=== PATIENT | male | born 1965 | race Caucasian/White ===

== ENCOUNTER 2017-05-11 02:07 | Observation (INO) | payer BC, MEDICARE ==
[2017-05-11 02:08] VITALS: BMI 34.0
[2017-05-11 03:17] LABS: MONO % 6.3 % (0.0-10.0)
[2017-05-11 03:21] LABS: ALB/GLOB RATIO 1.2 (1.0-2.1); ALBUMIN 4.1 g/dL (3.5-5.0); ALT/SGPT 54 U/L (21-72); AST/SGOT 28 U/L (17-59); BLOOD UREA NITROGEN 15 mg/dL (9-20); CALCIUM 8.7 mg/dl (8.6-10.4); GFR AFRICAN-AMERICAN > 60; GFR NON-AFRICAN AMERICAN > 60
[2017-05-11 03:24] LABS: BASO # 0.1 K/uL (0.0-0.2); BASO % 0.8 % (0.0-2.0); EOS # 0.4 K/uL (0.0-0.7); EOS % 2.4 % (0.0-4.0); LYMPH # 2.7 K/uL (1.0-4.3); LYMPH % 17.1 % (20.0-40.0); MEAN CELL VOLUME 91.6 fL (80.0-94.0); MEAN CORPUSCULAR HEMOGLOBIN 31.5 pg (27.0-31.0); MEAN CORPUSCULAR HGB CONC 34.4 g/dL (33.0-37.0); MEAN PLATELET VOLUME 10.5 fL (7.2-11.7); NEUT # 11.5 K/uL (1.8-7.0); NEUT % 73.4 % (50.0-75.0); RBC 4.44 Mil/uL (4.40-5.90); RED CELL DISTRIBUTION WIDTH 13.2 % (11.5-14.5); WHITE BLOOD COUNT 15.6 K/uL (4.8-10.8)
[2017-05-11] MEDS ORDERED: Aspirin 325 mg EC Tablets PO STA (03:27)
[2017-05-11 03:33] LABS: B-TYPE NATRIURETIC PEPTIDE 103 pg/mL (0-900)
[2017-05-11] MEDS ORDERED: Aspirin 325 mg EC Tablets PO ONE (03:36)
--- NOTE | 2017-05-11 03:44 | C.PDOC ---
History Of Present Illness 52 year old male with PMHx of dilated cardiomyopathy presents to the ED for evaluation of chest pressure, weakness in his legs and occipotal pressure. Patient has a defibrillator in place followed by Dr. Rodriguez, patient's last evaluation with Dr. Rodriguez was on 2013 showed a right cardiac cath with mild pulmonary hypertension. Per patient he also had a normal cath on 2010. Time Seen by Provider: 05/11/17 02:57 Chief Complaint (Nursing): Chest Pain History Per: Patient History/Exam Limitations: no limitations Onset/Duration Of Symptoms: Days Current Symptoms Are (Timing): Gone Quality: Pressure Modifying Factors: None Exacerbating Factors: None Alleviating Factors: None Recent travel outside of the [place]: No Additional History Per: Patient Past Medical History Reviewed: Historical Data, Nursing Documentation, Vital Signs Vital Signs: Last Vital Signs Temp 97.7 F 05/11/17 06:00 Pulse 73 05/11/17 06:00 Resp 20 05/11/17 06:00 BP 107/71 05/11/17 06:00 Pulse Ox 95 05/11/17 06:00 - Medical History PMH: Anxiety, Arthritis (KNEE PAIN), Asthma, CHF, COPD, Depression, HTN, Peripheral Edema (SOMETIMES), Sleep Apnea Denies: Chronic Kidney Disease Surgical History: No Surg Hx - [facility] CORONAR ARTERIOGR-2 CATH (05/26/13) INFLUENZA VACCINATION (05/08/13) LT HEART ANGIOCARDIOGRAM (05/26/13) RT/LEFT HEART CARD CATH (05/26/13) Family History: States: Unknown Family Hx - Social History Hx Tobacco Use: Yes Hx Alcohol Use: Yes Hx Substance Use: No - Immunization History Hx Tetanus Toxoid Vaccination: No Hx Influenza Vaccination: No Hx Pneumococcal Vaccination: No Review Of Systems Constitutional: Negative for: Fever, Chills Cardiovascular: Positive for: Chest Pain. Negative for: Palpitations Respiratory: Negative for: Cough, Shortness of Breath Gastrointestinal: Negative for: Nausea, Vomiting, Abdominal Pain Skin: Negative for: Rash Neurological: Positive for: Weakness, Headache. 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, anxious) Skin: Normal Color, Warm, Dry Head: Atraumatic, Normacephalic Nose: No Discharge, No Deformity Oral Mucosa: Moist Neck: Normal ROM, Supple Chest: Symmetrical, Other (defibrillator midaxillary line left chest) Cardiovascular: Rhythm Regular, No Murmur Respiratory: Normal Breath Sounds, No Rales, No Rhonchi, No Wheezing Gastrointestinal/Abdominal: Soft, No Tenderness, No Guarding, No Rebound Extremity: Normal ROM, No Pedal Edema, No Calf Tenderness, No Deformity, No Swelling Neurological/Psych: Oriented x3, Normal Speech Gait: Steady ED Course And Treatment - Laboratory Results Result Diagrams: 05/11/17 03:10 05/11/17 03:10 Lab Interpretation: Abnormal (+ elev WBC's not L-shifted. trop/bnp wnl) ECG: Interpreted By Me ECG Rhythm: Sinus Rhythm, Nonspecific Changes (lateral leads, unchanged from prior (as described)) ECG Interpretation: Normal Rate From EC O2 Sat by Pulse Oximetry: 96 (On RA) Pulse Ox Interpretation: Normal - Radiology CXR: Interpreted by Me CXR Interpretation: Yes: No Acute Disease - CT Scan/US CT Head Other Rad Studies (CT/US): Read By Radiologist, Radiology Report Reviewed CT/US Interpretation: FINDINGS: Brain: Mild atrophy. No intracranial hemorrhage. No mass. No definite edema. Ventricles: No hydrocephalus. Bones/ joints: No acute fracture. Soft tissues: Unremarkable. Vasculature: Minimal atherosclerotic disease of intracranial arteries. Sinuses: No acute sinusitis. Mastoid air cells: No mastoid effusion. Orbits: Unremarkable as visualized. IMPRESSION: 1. No definite acute intracranial abnormality. 2. Incidental/non- acute findings are described above. Progress Note: headache pressure treated with toradol/tramadol, ASA Reevaluation Time: 04:30 Reassessment Condition: Improved - Physician Consult Information Outcome Of Conversation: 0430: calls to d/w Dr. Tomas Milner- PMD. discussed @ 0600 Medical Decision Making Medical Decision Making: Plan: * CT head * EKG * CXR * Blood work * Ecotrin 325 mg PO * Toradol 30 mg IVP * Ultram 50 mg PO vague head and chest discomfort, + anxiety, normal w/u h/o dilated cardiomyopathy with defibrillator, no recent Cardiac Echo available. Admit for Tele obs. Consult w Dr. Rodriguez head CT neg neck discomfort seems R>L cervical trapezius area and NOT intracranial. Tramadol/toradol trialed but no sig relief per pt (though sleeping on re-eval) Disposition Doctor Will See Patient In The: Hospital Counseled Patient/Family Regarding: Studies Performed, Diagnosis - Disposition Disposition: HOSPITALIZED Disposition Time: 04:32 Condition: GOOD Forms: [facility] (Gambian) - Clinical Impression Clinical Impression: Chest discomfort, Pressure in head, Sprain of cervical neck - Scribe Statement The provider has reviewed the documentation as recorded by the Scribe Keegan Schilling All medical record entries made by the Scribe were at my direction and personally dictated by me. I have reviewed the chart and agree that the record accurately reflects my personal performance of the history, physical exam, medical decision making, and the department course for this patient. I have also personally directed, reviewed, and agree with the discharge instructions and disposition.
--- NOTE | 2017-05-11 04:32 | CT ---
EXAM: CT Head Without Intravenous Contrast CLINICAL HISTORY: 52 years old, male; Pain; Headache; Headache not specified; Additional info: Head pressure/occipital TECHNIQUE: Axial computed tomography images of the head/brain without intravenous contrast. All CT scans at this facility use one or more dose reduction techniques, viz.: automated exposure control; ma/kV adjustment per patient size (including targeted exams where dose is matched to indication; i.e. head); or iterative reconstruction technique. Coronal and sagittal reformatted images were created and reviewed. COMPARISON: No relevant prior studies available. FINDINGS: Brain: Mild atrophy. No intracranial hemorrhage. No mass. No definite edema. Ventricles: No hydrocephalus. Bones/joints: No acute fracture. Soft tissues: Unremarkable. Vasculature: Minimal atherosclerotic disease of intracranial arteries. Sinuses: No acute sinusitis. Mastoid air cells: No mastoid effusion. Orbits: Unremarkable as visualized. IMPRESSION: 1. No definite acute intracranial abnormality. 2. Incidental/non-acute findings are described above.
[2017-05-11] MEDS ORDERED: Enoxaparin 40 mg Syringe SC STA (04:33)
[2017-05-11] MEDS ORDERED: Enoxaparin 100 mg Syringe ONE (04:43)
[2017-05-11 06:02] VITALS: RESP 20
--- NOTE | 2017-05-11 08:42 | RAD ---
PROCEDURE: CHEST RADIOGRAPH, 1 VIEW HISTORY: SOB COMPARISON: Comparison is made with 05/07/2013 FINDINGS: LUNGS: No evidence of new infiltrate or consolidation in the lungs. PLEURA: No pneumothorax or pleural fluid seen. CARDIOVASCULAR: Normal. OSSEOUS STRUCTURES: No significant abnormalities. VISUALIZED UPPER ABDOMEN: Normal. OTHER FINDINGS: None. IMPRESSION: No active disease.
[2017-05-11] MEDS ORDERED: Potassium Chloride 20 mEq ER Tab PO ONE (10:00)
[2017-05-11] MEDS: Enoxaparin 30 mg Syringe SC SCH ×2 (11:00→21:28)
--- NOTE | 2017-05-11 13:56 | CP.PCM.CON ---
History of Present Illness - History of Present Illness History of Present Illness: I was asked to see patient by Dr Milner. patient is a 52 year old male with PMH nonobstructive CAD, hypercholesterolemia , dialted cardiomyopathy s/p AICD who presents with pressure in the occipital region of the head. Symptoms were intermittent, however the patient became concerned because he developed blurry vision. The patient had a radiation of his pain to the chest. He denies dyspnea or palpitaitons. Review of Systems - Constitutional Constitutional: absent: As Per HPI, Anorexia, Chills, Daytime Sleepiness, Excessive Sweating, Fatigue, Fever, Frequent Falls, Headache, Increased Appetite , Lethargy, Malaise, Night Sweats, Snoring, Sleep Apnea, Weight Gain, Weight Loss, Weakness, Other - EENT Eyes: absent: As Per HPI, Blind Spots, Blurred Vision, Change in Vision, Decreased Night Vision, Diplopia, Discharge, Dry Eye, Exophthalmos, Floaters, Irritation, Itchy Eyes, Loss of Peripheral Vision, Pain, Photophobia, Requires Corrective Lenses, Sees Flashes, Spots in Vision, Tunnel Vision, Other Visual Disturbances, Loss of Vision, Other Ears: absent: As Per HPI, Decreased Hearing, Ear Discharge, Ear Pain, Tinnitus, Abnormal Hearing, Disequilibrium, Dizziness, Other Nose/Mouth/Throat: absent: As Per HPI, Epistaxis, Nasal Congestion, Nasal Discharge, Nasal Obstruction, Nasal Trauma, Nose Pain, Post Nasal Drip, Sinus Pain, Sinus Pressure, Bleeding Gums, Change in Voice, Dental Pain, Dry Mouth, Dysphagia, Halitosis, Hoarsness, Lip Swelling, Mouth Lesions, Mouth Pain, Odynophagia, Sore Throat, Throat Swelling, Tongue Swelling, Facial Pain, Neck Pain, Neck Mass, Other - Cardiovascular Cardiovascular: absent: As Per HPI, Acrocyanosis, Chest Pain, Chest Pain at Rest , Chest Pain with Activity, Claudication, Diaphoresis, Dyspnea, Dyspnea on Exertion, Edema, Irregular Heart Rhythm, Pain Radiating to Arm/Neck/Jaw, Leg Edema, Leg Ulcers, Lightheadedness, Orthopnea, Palpitations, Paroxysmal Nocturnal Dyspnea, Pedal Edema, Radiating Pain, Rapid Heart Rate, Slow Heart Rate, Syncope, Other - Respiratory Respiratory: absent: As Per HPI, Cough, Dyspnea, Hemoptysis, Dyspnea on Exertion , Wheezing, Snoring, Stridor, Pain on Inspiration, Chest Congestion, Excessive Mucous Production, Change in Mucous Color, Pain with Coughing, Other - Gastrointestinal Gastrointestinal: absent: As Per HPI, Abdominal Pain, Belching, Bloating, Change in Bowel Habits, Change in Stool Character, Coffee Ground Emesis, Constipation, Cramping, Diarrhea, Dyspepsia, Dysphagia, Early Satiety, Excessive Flatus, Fecal Incontinence, Heartburn, Hematemesis, Hematochezia, Loose Stools, Melena, Nausea, Odynophagia, Temesmus, Vomiting, Other - Genitourinary Genitourinary: absent: As Per HPI, Change in Urinary Stream, Difficulty Urinating, Dysuria, Flank Pain, Hematuria, Pyuria, Nocturia, Urinary Incontinence, Urinary Frequency, Urinary Hesitance, Urinary Urgency, Voiding Freq/Small Amts, Freq UTI, Hx Renal/Bladder Calculi, Hx /Renal Surgery, Bladder Distension, Other - Musculoskeletal Musculoskeletal: absent: As Per HPI, Abnormal Gait, Arthralgias, Atrophy, Back Pain, Deformity, Joint Swelling, Limited Range of Motion, Loss of Height, Muscle Cramps, Muscle Weakness, Myalgias, Neck Pain, Numbness, Radiating Pain into Limb, Stiffness, Tingling, Other - Integumentary Integumentary: absent: As Per HPI, Acne, Alopecia, Bleeding Lesions, Change in Hair, Change in Nails, Change in Pigmentation, Changing Lesions, Dry Skin, Erythema, Furuncle, Hirsutism, Lesions, New Lesions, Non-Healing Lesions, Photosensitivity, Pruritus, Rash, Skin Pain, Skin Ulcer, Sores, Striae, Swelling , Unusual Bruising, Wounds, Jaundice, Other - Neurological Neurological: absent: As Per HPI, Abnormal Gait, Abnormal Hearing, Abnormal Movements, Abnormal Speech, Behavioral Changes, Burning Sensations, Confusion, Convulsions, Disequilibrium, Dizziness, Numbness, Focal Weakness, Frequent Falls , Headaches, Lack of Coordination, Loss of Vision, Memory Loss, Paresthesias, Radicular Pain, Restless Legs, Sensory Deficit, Syncope, Tingling, Tremor, Vertigo, Weakness, Other Visual Disturbances, Other - Psychiatric Psychiatric: absent: As Per HPI, Abnormal Sleep Pattern, Anhedonia, Anxiety, Auditory Hallucinations, Behavioral Changes, Change in Appetite, Change in Libido, Confusion, Depression, Difficulty Concentrating, Hallucinations, Homicidal Ideation, Hopelessness, Irritability, Memory Loss, Mood Swings, Panic Attacks, Paranoia, Suicidal Ideation, Visual Hallucinations, Tactile Hallucinations, Other - Endocrine Endocrine: absent: As Per HPI, Change in Body Appearance, Change in Libido, Cold Intolorance, Deepening of Voice, Excessive Sweating, Fatigue, Flushing, Heat Intolorance, Increase in Ring/Shoe/Hat Size, Palpitations, Polydipsia, Polyphagia, Polyuria, Other - Hematologic/Lymphatic Hematologic: absent: As Per HPI, Easy Bleeding, Easy Bruising, Lymphadenopathy, Other Past Patient History - Infectious Disease Hx of Infectious Diseases: None - Past Medical History & Family History Past Medical History?: Yes - Past Social History Smoking Status: Former Smoker - CARDIAC Hx Congestive Heart Failure: Yes Hx Hypertension: Yes Hx Peripheral Edema: Yes (SOMETIMES) - PULMONARY Hx Asthma: Yes Hx Chronic Obstructive Pulmonary Disease (COPD): Yes Hx Sleep Apnea: Yes - NEUROLOGICAL Hx Neurological Disorder: Yes (SOMETIMES NUMBNESS HANDS AND FEET) - HEENT Hx HEENT Problems: Yes (GLASSES) - RENAL Hx Chronic Kidney Disease: No - ENDOCRINE/METABOLIC Hx Endocrine Disorders: No - HEMATOLOGICAL/ONCOLOGICAL Hx Blood Disorders: No - INTEGUMENTARY Hx Dermatological Problems: Yes (HIVES/ETIOLOGY UNKNOWN) - MUSCULOSKELETAL/RHEUMATOLOGICAL Hx Arthritis: Yes (KNEE PAIN) - GASTROINTESTINAL Hx Gastrointestinal Disorders: Yes Hx Gastroesophageal Reflux: Yes - GENITOURINARY/GYNECOLOGICAL Hx Genitourinary Disorders: No - PSYCHIATRIC Hx Anxiety: Yes Hx Depression: Yes Hx Substance Use: No - SURGICAL HISTORY Hx Surgeries: Yes Hx Cardiac Catheterization: Yes Other/Comment: DEFIBRILLATOR. - ANESTHESIA Hx Anesthesia: Yes Hx Anesthesia Reactions: No Hx Malignant Hyperthermia: No Meds Allergies/Adverse Reactions: Allergies Allergy/AdvReac Type Severity Reaction Status Date / Time FRUIT AdvReac SWELLING Uncoded 05/11/17 02:24 - Medications Medications: Current Medications Carvedilol (Coreg) 12.5 mg PO BID [facility] Last Admin: 05/11/17 11:00 Dose: 12.5 mg Clopidogrel Bisulfate (Plavix) 75 mg PO DAILY [facility] Last Admin: 05/11/17 11:00 Dose: 75 mg Enoxaparin Sodium (Lovenox) 30 mg SC Q12 [facility] Last Admin: 05/11/17 11:00 Dose: 30 mg Losartan Potassium (Cozaar) 100 mg PO DAILY [facility] Last Admin: 05/11/17 11:00 Dose: 100 mg Pneumococcal Polyvalent Vaccine (Pneumovax 23 Vaccine) 0.5 ml IM .ONCE ONE Stop: 05/14/17 14:01 Rosuvastatin Calcium (Crestor) 10 mg PO HS [place] Physical Exam - Constitutional Appears: Non-toxic - Head Exam Head Exam: NORMAL INSPECTION - Eye Exam Eye Exam: Normal appearance - ENT Exam ENT Exam: Mucous Membranes Moist - Neck Exam Neck exam: Positive for: Full Rom - Respiratory Exam Respiratory Exam: NORMAL BREATHING PATTERN - Cardiovascular Exam Cardiovascular Exam: REGULAR RHYTHM - GI/Abdominal Exam GI & Abdominal Exam: Normal Bowel Sounds - Rectal Exam Rectal Exam: Deferred - Extremities Exam Extremities exam: Positive for: normal inspection, pedal edema - Back Exam Back exam: NORMAL INSPECTION - Neurological Exam Neurological exam: Alert, Oriented x3 - Psychiatric Exam Psychiatric exam: Normal Affect - Skin Skin Exam: Normal Color Results - Vital Signs Recent Vital Signs: Last Vital Signs Temp 97.5 F L 05/11/17 07:59 Pulse 75 05/11/17 07:59 Resp 20 05/11/17 07:59 BP 120/72 05/11/17 11:00 Pulse Ox 95 05/11/17 07:59 - Labs Result Diagrams: 05/11/17 03:10 05/11/17 03:10 Labs: Laboratory Results - last 24 hr 05/11/17 05/11/17 03:10 03:10 WBC 15.6 H RBC 4.44 Hgb 14.0 Hct 40.7 MCV 91.6 D MCH 31.5 H MCHC 34.4 RDW 13.2 Plt Count 249 MPV 10.5 Neut % (Auto) 73.4 Lymph % (Auto) 17.1 L [place] % (Auto) 6.3 Eos % (Auto) 2.4 Baso % (Auto) 0.8 Neut # 11.5 H Lymph # 2.7 [place] # 1.0 H Eos # 0.4 Baso # 0.1 Sodium 133 Potassium 3.3 L Chloride 94 L Carbon Dioxide 28 Anion Gap 14 BUN 15 Creatinine 0.9 Est GFR ( Amer) > 60 Est GFR (Non-Af Amer) > 60 Random Glucose 112 H Calcium 8.7 Total Bilirubin 0.8 AST 28 ALT 54 Alkaline Phosphatase 88 Troponin I 0.0120 NT-Pro-B Natriuret Pep 103 Total Protein 7.5 Albumin 4.1 Globulin 3.4 Albumin/Globulin Ratio 1.2 - EKG Data EKG Interpreted by: Myself EKG shows normal: Sinus rhythm Assessment & Plan (1) Pressure in head Assessment and Plan: CT scan pending. no evidence of afib Status: Acute (2) HTN (hypertension) Assessment and Plan: blood pressure is controlled. Status: Acute (3) Dilated cardiomyopathy Assessment and Plan: s/p subcutaneous AICD. Status: Acute (4) CAD (coronary artery disease) Assessment and Plan: nonobstructive. chest pain does not appear cardiac. recommend medical therapy. EKG noted, but no acute ischemia. consider outpatient stress test Status: Acute
--- NOTE | 2017-05-11 15:06 | CP.PCM.HP ---
History of Present Illness - History of Present Illness History of Present Illness: CC: nape pain 52 y/o male with CAD. Patient yesterday jackson chest presuure and goes to the nape. This was later followed by blurred vision/ eye pain. patiemnt nervous and went to ER. Present on Admission - Present on Admission Any Indicators Present on Admission: Yes History of DVT/PE: No History of Uncontrolled Diabetes: No Urinary Catheter: No Decubitus Ulcer Present: No Review of Systems - Review of Systems Systems not reviewed;Unavailable: Acuity of Condition - Constitutional Constitutional: absent: Excessive Sweating, Increased Appetite, Night Sweats, Sleep Apnea - EENT Eyes: absent: Diplopia, Discharge, Dry Eye, Floaters, Requires Corrective Lenses , Sees Flashes Ears: absent: Decreased Hearing, Ear Discharge, Ear Pain, Dizziness Nose/Mouth/Throat: absent: Epistaxis, Nasal Obstruction, Sinus Pressure, Bleeding Gums, Change in Voice, Hoarsness, Mouth Lesions, Mouth Pain, Odynophagia - Cardiovascular Cardiovascular: Chest Pain. absent: Chest Pain at Rest, Diaphoresis, Dyspnea, Edema, Irregular Heart Rhythm, Leg Edema, Palpitations, Paroxysmal Nocturnal Dyspnea, Slow Heart Rate - Respiratory Respiratory: absent: Cough, Hemoptysis, Dyspnea on Exertion, Wheezing, Chest Congestion, Excessive Mucous Production, Pain with Coughing - Gastrointestinal Gastrointestinal: absent: Bloating, Dysphagia, Heartburn, Hematochezia, Loose Stools, Melena - Genitourinary Genitourinary: absent: Difficulty Urinating, Nocturia, Urinary Urgency, Freq UTI - Musculoskeletal Musculoskeletal: absent: Abnormal Gait, Atrophy, Loss of Height, Muscle Weakness , Myalgias, Neck Pain, Numbness, Radiating Pain into Limb - Integumentary Integumentary: absent: New Lesions, Skin Pain, Sores, Unusual Bruising - Neurological Neurological: absent: Abnormal Gait, Dizziness, Loss of Vision, Restless Legs, Syncope - Psychiatric Psychiatric: Anxiety. absent: Confusion, Hopelessness, Irritability, Mood Swings Past Patient History - Infectious Disease Hx of Infectious Diseases: None - Past Medical History & Family History Past Medical History?: Yes - Past Social History Smoking Status: Former Smoker - CARDIAC Hx Congestive Heart Failure: Yes Hx Hypertension: Yes Hx Peripheral Edema: Yes (SOMETIMES) - PULMONARY Hx Asthma: Yes Hx Chronic Obstructive Pulmonary Disease (COPD): Yes Hx Sleep Apnea: Yes - NEUROLOGICAL Hx Neurological Disorder: Yes (SOMETIMES NUMBNESS HANDS AND FEET) - HEENT Hx HEENT Problems: Yes (GLASSES) - RENAL Hx Chronic Kidney Disease: No - ENDOCRINE/METABOLIC Hx Endocrine Disorders: No - HEMATOLOGICAL/ONCOLOGICAL Hx Blood Disorders: No - INTEGUMENTARY Hx Dermatological Problems: Yes (HIVES/ETIOLOGY UNKNOWN) - MUSCULOSKELETAL/RHEUMATOLOGICAL Hx Arthritis: Yes (KNEE PAIN) - GASTROINTESTINAL Hx Gastrointestinal Disorders: Yes Hx Gastroesophageal Reflux: Yes - GENITOURINARY/GYNECOLOGICAL Hx Genitourinary Disorders: No - PSYCHIATRIC Hx Anxiety: Yes Hx Depression: Yes Hx Substance Use: No - SURGICAL HISTORY Hx Surgeries: Yes Hx Cardiac Catheterization: Yes Other/Comment: DEFIBRILLATOR. - ANESTHESIA Hx Anesthesia: Yes Hx Anesthesia Reactions: No Hx Malignant Hyperthermia: No Meds Allergies/Adverse Reactions: Allergies Allergy/AdvReac Type Severity Reaction Status Date / Time FRUIT AdvReac SWELLING Uncoded 05/11/17 02:24 Physical Exam - Constitutional Appears: Well - Eye Exam Eye Exam: Normal appearance - ENT Exam ENT Exam: Mucous Membranes Moist - Neck Exam Neck exam: Positive for: Full Rom. Negative for: Lymphadenopathy, Normal Inspection - Respiratory Exam Respiratory Exam: Clear to Auscultation Bilateral. absent: Rales, Rhonchi, Wheezes - Cardiovascular Exam Cardiovascular Exam: +S1, +S2, Systolic Murmur. absent: Gallop, JVD - GI/Abdominal Exam GI & Abdominal Exam: Soft. absent: Rebound, Tenderness - Extremities Exam Extremities exam: Positive for: full ROM, normal capillary refill. Negative for : calf tenderness, joint swelling, pedal edema Results - Vital Signs Recent Vital Signs: Last Vital Signs Temp 97.5 F L 05/11/17 07:59 Pulse 75 05/11/17 07:59 Resp 20 05/11/17 07:59 BP 120/72 05/11/17 11:00 Pulse Ox 95 05/11/17 07:59 - Labs Result Diagrams: 05/11/17 03:10 05/11/17 03:10 Labs: Laboratory Results - last 24 hr 05/11/17 05/11/17 03:10 03:10 WBC 15.6 H RBC 4.44 Hgb 14.0 Hct 40.7 MCV 91.6 D MCH 31.5 H MCHC 34.4 RDW 13.2 Plt Count 249 MPV 10.5 Neut % (Auto) 73.4 Lymph % (Auto) 17.1 L [place] % (Auto) 6.3 Eos % (Auto) 2.4 Baso % (Auto) 0.8 Neut # 11.5 H Lymph # 2.7 [place] # 1.0 H Eos # 0.4 Baso # 0.1 Sodium 133 Potassium 3.3 L Chloride 94 L Carbon Dioxide 28 Anion Gap 14 BUN 15 Creatinine 0.9 Est GFR ( Amer) > 60 Est GFR (Non-Af Amer) > 60 Random Glucose 112 H Calcium 8.7 Total Bilirubin 0.8 AST 28 ALT 54 Alkaline Phosphatase 88 Troponin I 0.0120 NT-Pro-B Natriuret Pep 103 Total Protein 7.5 Albumin 4.1 Globulin 3.4 Albumin/Globulin Ratio 1.2 - EKG Data EKG Interpreted by: Myself EKG shows normal: Sinus rhythm, ST-T waves - EKG Data When Compared to Previous EKG: No Significant Change (non sp ST depression) Assessment & Plan - Assessment and Plan (Free Text) Assessment: Chest pain/ blurred vison CAD s/p IVCD; Asthma Cont meds/ For Neuro eval
[2017-05-12 07:46] LABS: BASO # 0.1 K/uL (0.0-0.2); BASO % 0.7 % (0.0-2.0); EOS # 0.3 K/uL (0.0-0.7); EOS % 3.8 % (0.0-4.0); HEMOGLOBIN 13.9 g/dL (12.0-18.0); LYMPH # 2.6 K/uL (1.0-4.3); LYMPH % 28.6 % (20.0-40.0); MEAN CELL VOLUME 93.2 fL (80.0-94.0); MEAN CORPUSCULAR HEMOGLOBIN 31.7 pg (27.0-31.0); MEAN PLATELET VOLUME 10.2 fL (7.2-11.7); MONO # 0.6 K/uL (0.0-0.8); MONO % 7.1 % (0.0-10.0); NEUT # 5.5 K/uL (1.8-7.0); NEUT % 59.8 % (50.0-75.0); RBC 4.37 Mil/uL (4.40-5.90); RED CELL DISTRIBUTION WIDTH 13.1 % (11.5-14.5); WHITE BLOOD COUNT 9.1 K/uL (4.8-10.8)
[2017-05-12 08:08] VITALS: PULSE 98; TEMP 97.9; O2SAT 96
[2017-05-12 08:11] LABS: BLOOD UREA NITROGEN 11 mg/dL (9-20); CALCIUM 8.9 mg/dl (8.6-10.4); GFR AFRICAN-AMERICAN > 60; GFR NON-AFRICAN AMERICAN > 60
--- NOTE | 2017-05-12 08:43 | CP.PCM.PN ---
Subjective - Date & Time of Evaluation Date of Evaluation: 05/12/17 Time of Evaluation: 08:15 - Subjective Subjective: Pt feels tightness on nape and on / off blurred vision. No more chest tightness, no SOB, no cough, no running nose, no n/v Objective - Vital Signs/Intake and Output Vital Signs (last 24 hours): Temp Pulse Resp BP Pulse Ox 97.9 F 98 H 20 143/89 96 05/12/17 08:07 05/12/17 08:07 05/12/17 08:07 05/12/17 08:07 05/12/17 08:07 - Medications Medications: Current Medications Carvedilol (Coreg) 12.5 mg PO BID [facility] Last Admin: 05/11/17 18:03 Dose: 12.5 mg Clopidogrel Bisulfate (Plavix) 75 mg PO DAILY [facility] Last Admin: 05/11/17 11:00 Dose: 75 mg Enoxaparin Sodium (Lovenox) 30 mg SC Q12 [facility] Last Admin: 05/11/17 21:28 Dose: 30 mg Lorazepam (Ativan) 0.5 mg PO HS PRN PRN Reason: Muscle spasm Last Admin: 05/11/17 21:27 Dose: 0.5 mg Losartan Potassium (Cozaar) 100 mg PO DAILY [facility] Last Admin: 05/11/17 11:00 Dose: 100 mg Pneumococcal Polyvalent Vaccine (Pneumovax 23 Vaccine) 0.5 ml IM .ONCE ONE Stop: 05/14/17 14:01 Rosuvastatin Calcium (Crestor) 10 mg PO [facility] Last Admin: 05/11/17 21:27 Dose: 10 mg - Labs Labs: 05/12/17 07:37 05/12/17 07:37 - Constitutional Appears: No Acute Distress - Eye Exam Eye Exam: Normal appearance - ENT Exam ENT Exam: Mucous Membranes Moist - Respiratory Exam Respiratory Exam: Clear to Ausculation Bilateral. absent: Rales, Rhonchi, Wheezes - Cardiovascular Exam Cardiovascular Exam: REGULAR RHYTHM, +S1, +S2, Murmur. absent: Gallop, JVD - GI/Abdominal Exam GI & Abdominal Exam: Soft, Normal Bowel Sounds. absent: Tenderness - Extremities Exam Extremities Exam: Full ROM, Normal Capillary Refill. absent: Calf Tenderness, Joint Swelling, Pedal Edema Assessment and Plan - Assessment and Plan (Free Text) Assessment: Chest pressure non cardiac; Nape pain/ Blurred vision Cardiomyopathy s/p IVCD; Asthma Inc WBC - resolve For discharge advise Neuro consult in OPD Cont meds/ flexeril, prn
[2017-05-12] MEDS: Enoxaparin 30 mg Syringe SC SCH (09:44)
[2017-05-12 09:45] VITALS: BP 116/74
[2017-05-12] MEDS ORDERED: Influenza Vaccine 60 mcg/0.5 mL SYR (4YR UP) IM ONE (10:18)
[2017-05-12] MEDS ORDERED: Pneumococcal 23-Valent Vaccine IM ONE (10:30)
--- NOTE | 2017-05-12 13:39 | CARD ---
APPROVED REPORT EKG Measurement Heart [id number] <Conclusion> Normal sinus rhythm Septal infarct, age undetermined T wave abnormality, consider inferolateral ischemia Abnormal ECG
[2017-05-14] MEDS ORDERED: Pneumococcal 23-Valent Vaccine IM ONE (14:00)
== END 2017-05-12 14:00 | disposition home or self-care (01) ==
LOC: C.ER 02:07 → C.5S 04:32
PROVIDERS: ADMIT Internal Medicine; ATTEND Internal Medicine
DX: R07.89 Other chest pain (principal); E78.00 Pure hypercholesterolemia, unspecified; G47.30 Sleep apnea, unspecified; I11.0 Hypertensive heart disease with heart failure; I25.10 Atherosclerotic heart disease of native coronary artery without angina pectoris; I42.0 Dilated cardiomyopathy; I50.9 Heart failure, unspecified; J44.9 Chronic obstructive pulmonary disease, unspecified; Z87.891 Personal history of nicotine dependence; Z95.810 Presence of automatic (implantable) cardiac defibrillator; Z79.899 Other long term (current) drug therapy; Z23 Encounter for immunization
CPT/HCPCS: 36415; 70450; 71045; 80048; 80053; 83880; 84484; 85025; 90674; 90732; 93005; 96372; 96374; 99285; G0008; G0009; G0378; J1650; J1885